=== PATIENT | female | born 1960 | race Hispanic/Latino ===

== ENCOUNTER 2018-11-14 07:50 | Day surgery (SDC) | payer OTHER ==
--- NOTE | 2018-11-14 08:38 | Anesthesia Consultation ---
Anesthesia Consult and Med Hx Date of service: 11/14/18 - Airway Anesthetic Teeth Evaluation: Good ROM Head & Neck: Adequate Mental/Hyoid Distance: Adequate Mallampati Class: Class II Intubation Access Assessment: Probably Good - Pulmonary Exam CTA: Yes - Cardiac Exam Cardiac Exam: RRR - Pre-Operative Health Status ASA Pre-Surgery Classification: ASA2 Proposed Anesthetic Plan: MAC - Pulmonary Hx Respiratory Symptoms: Yes (seasonal type allergies) - Cardiovascular System Hx Hypertension: Yes (on metoprolol) - Gastrointestinal Hx Gastroesophageal Reflux Disease: Yes (no current symptoms)
--- NOTE | 2018-11-14 08:39 | Anesthesia Day of Surgery ---
Anesthesia Day of Surgery - Day of Surgery Patient Examined: Yes Patient H&P Reviewed: Yes Patient is NPO: Yes Beta Blockers: Yes (last dose 11/14/18)
[2018-11-14] MEDS ORDERED: NACL 0.9% 1000 ML 1,000 ML IV SCH (09:30)
[2018-11-14] MEDS ORDERED: DIPRIVAN 10 MG/ML IV ONE ×2 (10:16)
[2018-11-14] MEDS ORDERED: WATER FOR IRRIG STERILE IR ONE (10:27)
[2018-11-14] MEDS ORDERED: WATER FOR IRRIG STERILE ONE (10:27)
--- NOTE | 2018-11-14 11:09 | Procedure Note ---
Date of procedure: 11/14/18 Pre-op diagnosis: GERD/ Colon Polyp Screening Post-op diagnosis: other (Mild to Moderate Distal Erosive Esophagitis/ R/O Eosinophilic Esophagitis/ Gastritis/ Multiple, Small Recto-Sigmoid Polyps) Procedure: EGD with Biopsy and Colonoscopy with Biopsy Anesthesia: TERENCE Surgeon: MICHELLE OH Estimated blood loss: minimal Pathology: list Specimen disposition: to lab Condition: stable Disposition: same day (Treat with PPI and avoid aspirin and NSAID for 5 days and follow up in 1 to 2 weeks ([phone]).)
--- NOTE | 2018-11-14 11:48 | Operative Report ---
PROCEDURE: Esophagogastroduodenoscopy with biopsy. INDICATIONS: A 57-year-old white female with an underlying history of hypertension, strong family history of cancer in several members of her family have had breast cancer. Father had bladder cancer and also has family history of colon polyps. She has been having GERD symptoms. EGD was done to assess for any significant upper GI pathology. DESCRIPTION OF PROCEDURE: Procedure was done after getting informed consent with MAC anesthesia. Instrument was passed through the pharynx into the esophagus, which showed some mild to moderate distal erosive esophagitis. Biopsies done from the midesophagus to rule out for eosinophilic esophagitis. Stomach showed antral gastritis. No ulcers were noted in the straight or the retroverted view. Biopsy was done from the gastric antrum, gastric body and angularis incisura to rule out for H. pylori and atrophic gastritis. The pylorus is patent. Duodenum in the first and second portion appeared normal. There was minimal bleeding from the biopsy sites. No complications associated with the procedure. ASSESSMENT: GERD symptoms, mild to moderate distal erosive esophagitis, rule out eosinophilic esophagitis, gastritis. PLAN: To treat the patient with PPI, have the patient avoid aspirin and aspirin-related products for the next few days. Follow up in the office in 1-2 weeks' time. The patient is to have a colonoscopy done as part of colon polyp screening. Again, there was minimal bleeding from the biopsy sites and no complications associated with the procedure. Nadia Cameron was in the room throughout the entirety of the procedure. JOB# [id number] KATEY/LOLITA
[2018-11-14 11:49] VITALS: BP 121/67
--- NOTE | 2018-11-14 11:56 | Operative Report ---
PROCEDURE: Colonoscopy. INDICATIONS FOR PROCEDURE: This is a 57-year-old white female with a strong family history of cancer. Several members of her family have had different types of cancer including breast cancer, bladder cancer and also has history of colon polyps. EGD was done prior to the colonoscopy shown presence of [id number] distal erosive esophagitis and gastritis. DESCRIPTION OF PROCEDURE: Colonoscopy was done after getting informed consent with MAC anesthesia. Initial rectal examination was unremarkable. Instrument was passed through the rectum onto the cecum, which was identified with ileocecal valve and appendiceal orifice. Visualization was fair to good. Cecum, ascending colon, transverse colon, descending colon and sigmoid showed normal mucosa. In the rectosigmoid area, there were 3 polyps noted, 2 of which may have been hyperplastic in type. These were removed by cold biopsy and the rectum appeared normal. In the retroflexed view, there was minimal bleeding from the biopsy sites. No complications associated with the procedure. ASSESSMENT: Colon polyp screening, multiple small possibly hyperplastic polyps in the rectosigmoid area. No diverticular disease, no internal hemorrhoids noted. There was minimal bleeding from the biopsy sites. No complications associated with the procedure. PLAN: The patient will be asked to avoid aspirin and aspirin-related products for the next few days and will be treated with PPI because of the upper GI findings of esophagitis, gastritis and will be asked to follow up in the office in 1-2 weeks' time. RNNadia was in the room throughout the entirety of the procedure. JOB# [id number] KATEY/LOLITA
== END 2018-11-14 07:51 | disposition home or self-care (01) ==
LOC: GIO 07:50
DX: Z12.11 Encounter for screening for malignant neoplasm of colon (principal); K63.5 Polyp of colon; K29.70 Gastritis, unspecified, without bleeding; K21.0 Gastro-esophageal reflux disease with esophagitis; I10 Essential (primary) hypertension; Z80.3 Family history of malignant neoplasm of breast; Z80.52 Family history of malignant neoplasm of bladder; Z83.71 Family history of colonic polyps; Z79.899 Other long term (current) drug therapy; Z98.890 Other specified postprocedural states
CPT/HCPCS: 43239; 45380; 88305; 88342; J2704; J7030